=== PATIENT | female | born 1990 | race Caucasian/White ===

== ENCOUNTER 2022-07-30 02:17 | Emergency (ER) | payer BC, MEDICAID, SELFPAY ==
[2022-07-30 02:35] VITALS: BP 137/84; PULSE 84; RESP 18; TEMP 37.1; O2SAT 99; BMI 28.3
--- NOTE | 2022-07-30 02:54 | ED_ITS ---
HPI - General Adult General Date Seen: 07/30/22 Chief complaint: Ear/Nose/Throat Problem Stated complaint: sinus infection Time Seen by Provider: 07/30/22 02:22 History of Present Illness HPI narrative: Patient is a 32-year-old female who has been ill for the past five days with runny nose and head congestion. Two days ago she began developing some pain in her left ear and that has progressed to the point where she is unable to sleep due to the pain. There has been no drainage from the ear. No fevers or chills. She is using some cold medication but no pain medication. Related Data Previous Rx's Medication Instructions Recorded amoxicillin 875 mg tablet 875 mg PO BID #20 tabs 07/30/22 Allergies Allergy/AdvReac Type Severity Reaction Status Date / Time No Known Drug Allergies Allergy Verified 07/30/22 02:37 Review of Systems Narrative: Review of systems is outlined above otherwise noted to be negative. [facility] Medical History (Updated 07/30/22 @ 02:54 by Eligio Andersen MD) Anxiety Surgical History (Updated 07/30/22 @ 02:52 by Ronnie Krueger RN) No significant past surgical history Social History Smoking Status: Never smoker Second hand tobacco smoke exposure: No How often do you have a drink containing alcohol: never How often do you have six or more drinks on one occasion: Never AUDIT-C Alcohol total score: 0 Non-prescribed substance use: denies use Exam Narrative: Exam Narrative: Vitals noted. HEENT: Conjunctiva clear. Right tympanic membrane is pearly white. On the left there is redness and some purulent fluid. No drainage. Posterior pharynx is clear without erythema or exudate. Neck is supple without adenopathy, thyromegaly, carotid bruit. Lungs: Clear to auscultation in all rowan. No wheezes, rales, rhonchi. Heart: Regular rate and rhythm without murmur. Extremities: No cyanosis or edema. Good distal pulses. Skin: No abnormalities noted of the exposed skin. Neurologic: Awake, alert, fully oriented. Neurologic exam is nonfocal. Const: Vital Signs, click to edit/add: Vital Signs - 24 hr 07/30/22 02:35 07/30/22 03:14 Temperature 98.7 F 98.7 F Pulse Rate [Right Pulse Oximeter] 84 84 Respiratory Rate 18 18 Blood Pressure [Ri ght Upper Arm] 137/84 137/84 Pulse Oximetry 99 Oxygen Delivery Me thod Room Air Course Course Hospital Course: Patient seen and examined. No diagnostic testing is needed. Vital Signs Vital signs: Initial Vital Signs Temperature 98.7 F 07/30/22 02:35 Temperature Source Temporal Artery Scan 07/30/22 02:35 Pulse Rate 84 07/30/22 02:35 Respiratory Rate 18 07/30/22 02:35 Blood Pressure 137/84 07/30/22 02:35 Blood Pressure Mean 101 07/30/22 02:35 Blood Pressure Position Sitting 07/30/22 02:35 Pulse Oximetry 99 07/30/22 02:35 Oxygen Delivery Method 07/30/22 02:35 Vital Signs Temperature 98.7 F 07/30/22 02:35 Pulse Rate 84 07/30/22 02:35 Respiratory Rate 18 07/30/22 02:35 Blood Pressure 137/84 07/30/22 02:35 Pulse Oximetry 99 07/30/22 02:35 Oxygen Delivery Method 07/30/22 02:35 Temperature 98.7 F 07/30/22 03:14 Pulse Rate 84 07/30/22 03:14 Respiratory Rate 18 07/30/22 03:14 Blood Pressure 137/84 07/30/22 03:14 Pulse Oximetry 99 07/30/22 02:35 Oxygen Delivery Method 07/30/22 02:35 Discharge Plan Discharge Clinical Impression: Otitis media Patient Disposition: Home, Self-Care Condition: Stable Additional Instructions: Amoxicillin 875 mg twice a day for 10 days. Tylenol and Ibuprofen for pain. Continue cold meds. Follow up with your PCP if no better in 3-5 days. Prescriptions: New amoxicillin 875 mg tablet 875 mg PO BID Qty: 20 0RF Stand Alone Forms: [employer] Info Instructions
[2022-07-30 03:14] VITALS: BP 137/84; PULSE 84; RESP 18; TEMP 37.1
== END 2022-07-30 03:14 | disposition home or self-care (01) ==
PROVIDERS: Emergency Provider Family Medicine
DX: H66.92 Otitis media, unspecified, left ear (principal)
CPT/HCPCS: 99281; 99283

== ENCOUNTER 2022-10-28 21:48 | Emergency (ER) | payer BC, MEDICAID, SELFPAY ==
[2022-10-28 22:52] VITALS: BP 119/80; PULSE 77; RESP 20; TEMP 36.1; O2SAT 100
--- NOTE | 2022-10-28 23:38 | ED.ABDPAIN ---
HPI - Abdominal Pain General Chief Complaint: Abdominal Pain Stated Complaint: Middle upper abdominal pain Time Seen by Provider: 10/28/22 23:09 History of Present Illness HPI narrative: This 32-year-old female reports abdominal pain that began last night. She states that she did not sleep through the night because the pain in her upper epigastric region was very severe. She states that the pain is worse after taking food. She does not report any fevers. She states that the pain is rather constant. She does feel pain radiating through to her back. Related Data Previous Rx's Medication Instructions Recorded amoxicillin 875 mg tablet 875 mg PO BID #20 tabs 07/30/22 Allergies Allergy/AdvReac Type Severity Reaction Status Date / Time No Known Drug Allergies Allergy Verified 07/30/22 02:37 Review of Systems Status of ROS Reports: 10 or more systems reviewed and unremarkable except as noted in History and below Narrative Constitutional: No fevers, no weight gain or loss. Eyes: No discharge. No vision changes. HENT: No congestion, no sore throat, no ear pain. Cardiovascular: No chest pain, no palpitations. Respiratory: No shortness of breath, no wheezes, no cough. Gastrointestinal: Abdominal pain as described above. Genitourinary: No dysuria, no hematuria. Musculoskeletal: Normal range of motion. Skin: No rashes, no pruritis. Neurological: No dizziness, weakness, sensory change, speech change. Endo/Heme/Allergies: No bruising or bleeding. No polydipsia. Pysch: no suicidality, no anxiety, no insomnia. All other systems reviewed and are negative. PFSH [facility] Medical History (Updated 10/29/22 @ 00:10 by Calderon Briones MD) Anxiety ?F41.9 - Anxiety disorder, unspecified (ICD-10) Surgical History (Updated 07/30/22 @ 02:52 by Ronnie Krueger RN) No significant past surgical history Social History Smoking Status: Never smoker Second hand tobacco smoke exposure: No How often do you have a drink containing alcohol: never How often do you have six or more drinks on one occasion: Never AUDIT-C Alcohol total score: 0 Non-prescribed substance use: denies use Exam Narrative: Exam Narrative: Constitutional: Well-developed, well-nourished, no acute distress. HEENT: Normocephalic, atraumatic. Neck: Normal range of motion. Nontender. Supple. Heart: Regular. No murmurs. Normal rate. Intact distal pulses. Lungs: Clear to auscultation. No chest discomfort. No wheezes, rhonchi, or rales. Abdomen: Normal bowel sounds. Pain in the upper epigastric region and in the right upper quadrant. No rebound tenderness. Genitalia: Deferred. Back: No midline tenderness. Normal range of motion. Extremities: Normal range of motion. No injury. Skin: Intact. No rash. Warm. No erythema or pallor. Neurologic: No altered sensation. No weakness. Alert and oriented. Psychiatric: No suicidality. No anxiety or depression. No insomnia. Nursing notes and vitals signs are reviewed. Const: Vital Signs, click to edit/add: Vital Signs - 24 hr 10/28/22 22:52 Temperature 97 F L Pulse Rate [Left P ulse Oximeter] 77 Respiratory Rate 20 Blood Pressure [Ri ght Upper Arm] 119/80 Pulse Oximetry 100 Oxygen Delivery Me thod Room Air Course Vital Signs Vital signs: Initial Vital Signs Temperature 97 F L 10/28/22 22:52 Temperature Source Temporal Artery Scan 10/28/22 22:52 Pulse Rate 77 10/28/22 22:52 Pulse Rhythm Regular 10/28/22 22:52 Respiratory Rate 20 10/28/22 22:52 Blood Pressure 119/80 10/28/22 22:52 Blood Pressure Mean 93 10/28/22 22:52 Blood Pressure Position Sitting 10/28/22 22:52 Pulse Oximetry 100 10/28/22 22:52 Oxygen Delivery Method Room Air 10/28/22 22:52 Vital Signs Temperature 97 F L 10/28/22 22:52 Pulse Rate 77 10/28/22 22:52 Respiratory Rate 20 10/28/22 22:52 Blood Pressure 119/80 10/28/22 22:52 Pulse Oximetry 100 10/28/22 22:52 Oxygen Delivery Method Room Air 10/28/22 22:52 Temperature 97 F L 10/28/22 22:52 Pulse Rate 77 10/28/22 22:52 Respiratory Rate 20 10/28/22 22:52 Blood Pressure 119/80 10/28/22 22:52 Pulse Oximetry 100 10/28/22 22:52 Oxygen Delivery Method Room Air 10/28/22 22:52 MDM - Abdominal Pain MDM Narrative Medical decision making narrative: This patient comes in with upper epigastric abdominal pain and right upper quadrant abdominal pain since last night. She states that she did not sleep last night due to the intensity of the pain. She also reports that the pain is worse after taking food. Using bedside ultrasound I did get good views of her gallbladder and common bile duct. She does have stones in her gallbladder. There is no sign of gallbladder wall thickening and her common bile duct appears patent without increased size. An IV was established where the patient received IV fluids, Dilaudid, and Zofran. Lab studies are ordered and results are pending at the end of my shift. The overnight physician will look after these results. The patient is able to go home if no complication is found related to her gallbladder. Discharge Plan Discharge Clinical Impression: Cholelithiasis Prescriptions: No Action amoxicillin 875 mg tablet 875 mg PO BID Qty: 20 0RF Follow Up/Referrals: Provider,Not a Local [Primary Care Provider] - Procedures Ultrasound Biliary exam #1: Anatomical areas examined: gallbladder, long and short axis and common bile duct Indications: RUQ/epigastric pain Exam type: limited abdominal ultrasound; RUQ Exam findings: stones visualized Impression: cholelithiasis Description/Findings: Stones located in the gallbladder but no gallbladder wall thickening and no obvious stone identified in the common bile duct.
[2022-10-28] MEDS: ONDANSETRON 2 MG/ML inj 4 MG IVP (23:52)
[2022-10-28] MEDS: HYDROmorphone 0.5 mg/0.5 ml inj IVP (23:52)
[2022-10-29] MEDS: 0.9 % SODIUM CHLORIDE 1000 ml 1,000 ML IV (00:10)
[2022-10-29 00:13] LABS: Basophils Absolute Auto 0.01 K/uL (0.00-0.30); Basophils Percent Auto 0.1 % (0.0-3.0); Eosinophils Absolute Auto 0.06 K/uL (0.00-0.50); Eosinophils Percent Auto 0.7 % (0.0-7.0); Hematocrit 36.1 % (33.0-51.0); Hemoglobin* 11.6 gm/dL (12.0-16.0); Immature Granulocytes Abs Auto 0.06 K/uL (0.00-0.30); Immature Granulocytes Pct Auto 0.7 %; Lymphocytes Absolute Auto 1.72 K/uL (0.90-2.90); Lymphocytes Percent Auto 20.1 % (20-44); Mean Corpuscular HGB Conc 32 gm/dL (32-36); Mean Corpuscular Hemoglobin 26 pg (26-34); Mean Corpuscular Volume 80 fL (80-100); Monocytes Percent Auto 7.4 % (0.0-11.0); Neutrophils Absolute Auto 6.08 K/uL (1.7-7.0); Platelet Count* 286 K/uL (140-440); RDW Coefficient of Variation % 13.6 % (11.5-15.5); Red Blood Count 4.51 m/uL (4.00-5.20); White Blood Count* 8.56 K/uL (4.50-11.00)
[2022-10-29 00:18] LABS: Slide Review Reflex No
[2022-10-29 00:24] LABS: Chloride* 105 mmol/L (96-114)
[2022-10-29 00:25] LABS: Albumin* 4.3 g/dL (3.3-5.0)
[2022-10-29 00:26] LABS: Potassium* 3.7 mmol/L (3.6-5.1); Sodium* 137 mmol/L (135-149)
[2022-10-29 00:28] LABS: Alkaline Phosphatase* 79 U/L (40-150); Aspartate Amino Transferase* 95 U/L (12-35); Bilirubin Direct* 0.1 mg/dL (0.0-0.5); Bilirubin Total* 0.4 mg/dL (0.1-1.5); Blood Urea Nitrogen* 11 mg/dL (5-24); Carbon Dioxide* 24 mmol/L (20-32); Creatinine* 0.6 mg/dL (0.5-1.5); Estimated Glomerular Filt Rate 121 ml/min; Total Protein* 7.6 g/dL (6.0-8.3)
[2022-10-29 00:29] LABS: Alanine Aminotransferase* 135 U/L (4-35); Calcium* 9.1 mg/dL (8.4-10.6); Glucose* 94 mg/dL (60-115); HCG Qualitative Serum* Negative (Negative); Lipase* 45 U/L (23-300)
[2022-10-29 00:31] LABS: C Reactive Protein* 0.9 mg/dL (0.5-1.0)
[2022-10-29 01:00] VITALS: BP 122/88; PULSE 64; RESP 16; TEMP 37; O2SAT 97
== END 2022-10-29 01:14 | disposition home or self-care (01) ==
PROVIDERS: Emergency Provider Emergency Medicine Emergency Medical Services
DX: K80.20 Calculus of gallbladder without cholecystitis without obstruction (principal)
CPT/HCPCS: 36415; 76705; 80048; 80076; 83690; 84703; 85025; 86140; 96374; 96375; 99284; J1170; J2405; J7030

== ENCOUNTER 2023-01-01 07:55 | Day surgery (SDC) | payer BC, MEDICAID, SELFPAY ==
[2023-01-01] VITALS (31 sets, daily range): BP systolic 90–126; BP diastolic 56–74; PULSE 47–83; RESP 16–18; TEMP 36.1–36.6; O2SAT 92–100; BMI 37.0
--- NOTE | 2023-01-01 08:29 | ED.ABDPAIN ---
HPI - Abdominal Pain General Date Seen: 01/01/23 Chief Complaint: Abdominal Pain Stated Complaint: Gallbladder pain Time Seen by Provider: 01/01/23 08:12 Source: patient Mode of arrival: ambulatory Limitations: no limitations History of Present Illness HPI narrative: Patient is a 32-year-old female who presents here with right upper quadrant pain, this started last night, last evening. She took some Tylenol, and ibuprofen and was unable to get really relief with this. She also is nauseous but has not vomited. She had the attack intensified this morning. Approximately 5:00 a.m., she took an oxycodone from a previous prescription. She then felt a pop approximately an hour later in the right upper quadrant and this ?freaked her out ?and she presented here. She has known cholelithiasis have been trying to deal with this in nonsurgical fashion, has not followed up with her primary care physician in [place] yet. She has really changed her diet she does not notice a difference with the food she eats. Attack stent to be random but are increasing over the past 6 weeks. Denies any fevers chills or sweats, bowel movement was normal yesterday, no dysuria frequency, she is currently having her menses. And denies being . MD elicited complaint: abdominal pain Pertinent past history: other Location: RUQ and R flank Severity: severe Quality: cramping and stabbing Radiation: back Migration to: no migration Exacerbating factors: nothing Relieving factors: nothing Associated symptoms: nausea Treatments prior to arrival: NSAIDs and prescription analgesics Related Data Date of last menstrual period: 01/01/23 Patient : No Home Medications Medication Instructions Recorded Confirmed No Known Home Medications 01/01/23 01/01/23 Allergies Allergy/AdvReac Type Severity Reaction Status Date / Time No Known Drug Allergies Allergy Verified 07/30/22 02:37 Review of Systems Status of ROS Reports: 10 or more systems reviewed and unremarkable except as noted in History and below PFSH [facility] Medical History Anxiety ?F41.9 - Anxiety disorder, unspecified (ICD-10) Surgical History No significant past surgical history Social History Smoking Status: Never smoker Second hand tobacco smoke exposure: No How often do you have a drink containing alcohol: never How often do you have six or more drinks on one occasion: Never AUDIT-C Alcohol total score: 0 Non-prescribed substance use: denies use Exam Narrative: Exam Narrative: Patient is seen in room 3, she is in mild distress very nice lady. Alert and oriented x3, nontoxic, pupils are equal round reactive to light, there is no scleral icterus noted, her TMs bilaterally are normal her oropharynx is normal, her neck is supple no meningismus, there is no lymphadenopathy anterior posterior chains, no evidence of petechiae or rashes are noted throughout her examination. Her chest is good air entry bilaterally but does splinting complaint of pain on the right side when she breathes in deeply. No extra sounds such as wheezes and crackles are noted. Heart sounds no clicks murmurs or gallops, she is slightly tender to moderately tender in the right upper quadrant epigastric region. There is no tenderness throughout the rest of her abdomen bowel sounds are normal, no organic megaly is noted no peritoneal signs, there is no CVA tenderness or tenderness along her flank notable. There is no thoracic or lumbar tenderness. She moves all extremities independently well well perfused no edema, and neurologically intact in upper lower extremities with symmetrical power, movement both proximally and distally. Const: Vital Signs, click to edit/add: Vital Signs - 24 hr 01/01/23 08:06 01/01/23 10:42 01/01/23 10:45 Temperature 96.9 F L Pulse Rate 52 L 55 L Pulse Rate [Right Pulse Oximeter] 67 Respiratory Rate 18 Blood Pressure [Ri ght Upper Arm] 109/56 L Pulse Oximetry 99 100 100 Oxygen Delivery Me thod Room Air Course Course Hospital Course: I spoke to Dr. Mcleod from General surgery, I suspect that this poor lady has severe biliary colic or early cholecystitis. She would likely need an operation, most likely laparoscopic cholecystectomy. I just wanted our general surgeon to be able to plan her day. I will get the labs ultrasound, Patient's pain is improved with the Dilaudid, given the findings on her examination, and ultrasound I believe she has early cholecystitis I spoken to the surgeon, she will be going to the operating room for a laparoscopic cholecystectomy, discussed with the patient. At this time the surgeon did not want antibiotics but they would be given perioperatively Vital Signs Vital signs: Initial Vital Signs Temperature 96.9 F L 01/01/23 08:06 Temperature Source Temporal Artery Scan 01/01/23 08:06 Pulse Rate 67 01/01/23 08:06 Respiratory Rate 18 01/01/23 08:06 Blood Pressure 109/56 L 01/01/23 08:06 Blood Pressure Mean 73 01/01/23 08:06 Blood Pressure Position Sitting 01/01/23 08:06 Pulse Oximetry 99 01/01/23 08:06 Oxygen Delivery Method Room Air 01/01/23 08:06 Vital Signs Temperature 96.9 F L 01/01/23 08:06 Pulse Rate 67 01/01/23 08:06 Respiratory Rate 18 01/01/23 08:06 Blood Pressure 109/56 L 01/01/23 08:06 Pulse Oximetry 99 01/01/23 08:06 Oxygen Delivery Method Room Air 01/01/23 08:06 Temperature 96.9 F L 01/01/23 08:06 Pulse Rate 55 L 01/01/23 10:45 Respiratory Rate 18 01/01/23 08:06 Blood Pressure 109/56 L 01/01/23 08:06 Pulse Oximetry 100 01/01/23 10:45 Oxygen Delivery Method Room Air 01/01/23 08:06 MDM - Abdominal Pain MDM Narrative Medical decision making narrative: During the evaluation of this patient I considered multiple differential diagnosis including life-threatening differentials which are appendicitis, aortic aneurysm, mesenteric ischemia, bowel perforation, ectopic , volvulus and bowel obstruction, other differential diagnosis include but are not limited to inflammatory bowel disease, cholecystitis, pancreatitis, hepatitis, gastritis, GERD, diverticulitis, peptic ulcer disease, pyelonephritis/UTI, renal colic/stone, pelvic inflammatory disease, cervicitis, endometritis, intrauterine , dysfunctional uterine bleeding, ovarian cyst/torsion, spontaneous as well as other etiologies Medical Records Attestation: I reviewed the patient's medical records. Lab Data Attestation: I reviewed the patient's lab results. Labs: Lab Results 01/01/23 Range/Units 09:00 WBC 3.69 L (4.50-11.00) K/uL RBC 4.47 (4.00-5.20) m/uL Hgb 11.5 L (12.0-16.0) gm/dL Hct 36.1 (33.0-51.0) % MCV 81 (80-100) fL MCH 26 (26-34) pg MCHC 32 (32-36) gm/dL RDW Coeff of Doug 13.6 (11.5-15.5) % Plt Count 187 (140-440) K/uL Neut % (Auto) 67.0 (42.0-72.0) % Lymph % (Auto) 22.2 (20-44) % Rogers % (Auto) 8.9 (0.0-11.0) % Eos % (Auto) 0.8 (0.0-7.0) % Baso % (Auto) 0.8 (0.0-3.0) % Neut # (Auto) 2.50 (1.7-7.0) K/uL Lymph # (Auto) 0.80 L (0.90-2.90) K/uL Rogers # (Auto) 0.30 (0.00-0.90) K/UL Eos # (Auto) 0.00 (0.00-0.50) K/uL Baso # (Auto) 0.00 (0.00-0.30) K/uL Sodium 137 (135-149) mmol/L Potassium 3.4 L (3.6-5.1) mmol/L Chloride 105 (96-114) mmol/L Carbon Dioxide 26 (20-32) mmol/L BUN 8 (5-24) mg/dL Creatinine 0.6 (0.5-1.5) mg/dL Estimated Creat Clear 169.03 Estimated GFR 121 ml/min Glucose 114 (60-115) mg/dL Calcium 8.6 (8.4-10.6) mg/dL Total Bilirubin 0.8 (0.1-1.5) mg/dL Direct Bilirubin 0.5 (0.0-0.5) mg/dL AST 768 H (12-35) U/L ALT 400 H (4-35) U/L Alkaline Phosphatase 80 (40-150) U/L C-Reactive Protein 0.7 (0.5-1.0) mg/dL Total Protein 6.8 (6.0-8.3) g/dL Albumin 3.9 (3.3-5.0) g/dL Lipase 42 (23-300) U/L HCG, Qual Negative (Negative) Imaging Data Abdominal ultrasound: Radiologist's impression: Patient: SLY BORGES Facility:?[facility] Patient ID:?[id number] Site Patient ID:?[id number]. :?1990 Study:?US Abdomen RUQ-01/01/2023 9:22:35 AM Ordering Physician:?DR GAONA Final Report: INDICATION: Right upper quadrant abdomen pain. TECHNIQUE: Ultrasound abdomen limited gallbladder, common bile duct, and pancreas. COMPARISON: None. FINDINGS: Gallbladder: Small stones and sludge present. Gallbladder is moderately distended. Normal wall thickness. No pericholecystic fluid. Common bile duct: 4 mm. Right kidney: Normal in caliber and appearance. No hydronephrosis. IMPRESSION: Cholelithiasis with moderate gallbladder distention. No other signs of acute cholecystitis. Dictated by Alvaro Spangler MD @ 01/01/2023 10:15:13 AM (Electronic Signature) Discharge Plan Discharge Clinical Impression: Cholecystitis, Cholelithiasis, Biliary colic Patient Disposition: XFER to OR Condition: Improved Prescriptions: No Action No Known Home Medications Follow Up/Referrals: Provider,Not a Local [Primary Care Provider] -
--- NOTE | 2023-01-01 08:34 | US_ITS ---
Patient: SLY BORGES Facility:?[facility] Patient ID:?[id number] Site Patient ID:?[id number]. :?1990 Study:?US-Abdomen RUQ-01/01/2023 9:22:35 AM Ordering Physician:?DR GAONA Final Report: INDICATION: Right upper quadrant abdomen pain. TECHNIQUE: Ultrasound abdomen limited gallbladder, common bile duct, and pancreas. COMPARISON: None. FINDINGS: Gallbladder: Small stones and sludge present. Gallbladder is moderately distended. Normal wall thickness. No pericholecystic fluid. Common bile duct: 4 mm. Right kidney: Normal in caliber and appearance. No hydronephrosis. IMPRESSION: Cholelithiasis with moderate gallbladder distention. No other signs of acute cholecystitis. Dictated by Alvaro Spangler MD @ 01/01/2023 10:15:13 AM Signed by:?Alvaro Spangler MD @01/01/2023 10:15:13 AM (Electronic Signature)
[2023-01-01] MEDS: HYDROmorphone 0.5 mg/0.5 ml inj IVP ×2 (08:59→10:35)
[2023-01-01] MEDS: ONDANSETRON 2 MG/ML inj 4 MG IVP ×2 (09:00→12:44)
[2023-01-01] MEDS: 0.9 % SODIUM CHLORIDE 1000 ml 1,000 ML IV (09:00)
[2023-01-01 09:14] LABS: Basophils Percent Auto 0.8 % (0.0-3.0); Eosinophils Percent Auto 0.8 % (0.0-7.0); Hematocrit 36.1 % (33.0-51.0); Hemoglobin* 11.5 gm/dL (12.0-16.0); Immature Granulocytes Pct Auto 0.3 %; Lymphocytes Percent Auto 22.2 % (20-44); Mean Corpuscular HGB Conc 32 gm/dL (32-36); Mean Corpuscular Hemoglobin 26 pg (26-34); Mean Corpuscular Volume 81 fL (80-100); Monocytes Percent Auto 8.9 % (0.0-11.0); Platelet Count* 187 K/uL (140-440); RDW Coefficient of Variation % 13.6 % (11.5-15.5); Red Blood Count 4.47 m/uL (4.00-5.20); White Blood Count* 3.69 K/uL (4.50-11.00)
[2023-01-01 09:17] LABS: Slide Review Reflex No
[2023-01-01 09:26] LABS: Chloride* 105 mmol/L (96-114)
[2023-01-01 09:27] LABS: Albumin* 3.9 g/dL (3.3-5.0); Potassium* 3.4 mmol/L (3.6-5.1); Sodium* 137 mmol/L (135-149)
[2023-01-01 09:29] LABS: Creatinine* 0.6 mg/dL (0.5-1.5); Est. Creatinine Clearance* 169.03; Estimated Glomerular Filt Rate 121 ml/min
[2023-01-01 09:30] LABS: Alkaline Phosphatase* 80 U/L (40-150); Bilirubin Direct* 0.5 mg/dL (0.0-0.5); Bilirubin Total* 0.8 mg/dL (0.1-1.5); Blood Urea Nitrogen* 8 mg/dL (5-24); Carbon Dioxide* 26 mmol/L (20-32); Lipase* 42 U/L (23-300); Total Protein* 6.8 g/dL (6.0-8.3)
[2023-01-01 09:31] LABS: Alanine Aminotransferase* 400 U/L (4-35); Calcium* 8.6 mg/dL (8.4-10.6); Glucose* 114 mg/dL (60-115)
[2023-01-01 09:33] LABS: C Reactive Protein* 0.7 mg/dL (0.5-1.0)
[2023-01-01 09:38] LABS: Aspartate Amino Transferase* 768 U/L (12-35)
[2023-01-01 09:43] LABS: HCG Qualitative Serum* Negative (Negative)
--- NOTE | 2023-01-01 12:23 | P.GSHP_ITS ---
History of Present Illness History of Present Illness Date Seen: 01/01/23 Chief complaint: Gallbladder pain Narrative: Gris Young is a 32 year old female Who presents to the emergency department with several days of abdominal pain. She states that last Thursday or 6 days ago she developed severe upper abdominal pain around 10:00 p.m.. she was able to fall asleep and she woke up later and her pain was gone But over the past week she has had chest pain, lightheadedness and dizziness. Last evening again around 10:00 p.m. she developed the same severe pain. She took Tylenol and used a heating pad. This did not alleviate her pain. She was up all night and at 5:00 a.m. became more severe and began radiating to her back. At 6:00 a.m. she felt gassy, dizzy and had chills and so she came in to be seen. In October she had a similar episode again which came on at night. Workup revealed stones in her gallbladder without cholecystitis or common bile duct dilatation. At that time white blood cell count was normal. AST and ALT were very mildly elevated. Bilirubin and CRP were both normal. She then was seen statistical machine servicer and was eating a gallbladder diet. She was doing well until this recent episode. She states that she has also had some heartburn symptoms but this has been mild. [facility] Medical History (Updated 01/01/23 @ 13:38 by Linda Mcleod MD) Anxiety ?F41.9 - Anxiety disorder, unspecified (ICD-10) Surgical History (Updated 01/01/23 @ 13:35 by Linda Mcleod MD) H/O lymph node biopsy ?Z98.890 - Other specified postprocedural states (ICD-10) History of ?Z98.891 - History of uterine scar from previous surgery (ICD-10) Social History Smoking Status: Never smoker Second hand tobacco smoke exposure: No How often do you have a drink containing alcohol: never How often do you have six or more drinks on one occasion: Never AUDIT-C Alcohol total score: 0 Non-prescribed substance use: denies use Meds Home Medications and Allergies Home Medications Medication Instructions Recorded Confirmed Type No Known Home Medications 01/01/23 01/01/23 History Allergies Allergy/AdvReac Type Severity Reaction Status Date / Time No Known Drug Allergies Allergy Verified 07/30/22 02:37 Exam Narrative: Exam Narrative: General appearance: Alert, cooperative, and in no distress Eyes: PERRLA, eye lids clear, and sclera white HENT Head: Normocephalic Ears: External ears normal Pulmonary: Clear to auscultation bilaterally Cardiovascular Heart: Regular rate and rhythm Extremities: warm and well perfused Gastrointestinal Abdominal: No upper abdominal scars. Patient is tender in the right upper quadrant and epigastric region. Negative Ryan sign. Musculoskeletal: Extremities: Upper: Both upper extremities have normal joint range of motion and intact strength. Lower: Both lower extremities have normal joint range of motion and intact strength. Skin: Normal skin color, texture, and turgor. Neurologic: No focal deficits Psychiatric: Alert, oriented, cooperative, normal affect. Const: Vital Signs, click to edit/add: Vital Signs - 24 hr 01/01/23 08:06 01/01/23 10:42 01/01/23 10:45 Temperature 96.9 F L Pulse Rate 52 L 55 L Pulse Rate [Right Pulse Oximeter] 67 Respiratory Rate 18 Blood Pressure [Ri ght Upper Arm] 109/56 L Pulse Oximetry 99 100 100 Oxygen Delivery Me thod Room Air Results Results Labs: White blood cell count is 3.6 Hemoglobin is 11.5 Potassium is mildly low at 3.4. AST and ALT are markedly elevated at 768 and 400. LFTs are otherwise normal. CRP normal. Abdominal ultrasound report/results: report reviewed and image reviewed Additional studies: Ultrasound of the abdomen done today shows small stones and sludge in the gallbladder. Gallbladder is moderately distended. Normal wall thickness. No pericholecystic fluid. Common bile duct measures 4 mm. Assessment and Plan Assessment and plan (1) Biliary colic: Status: Acute (2) Transaminitis: Status: Acute Plan The patient is a 32-year-old female with biliary colic and possible cho lecystitis though the only indicators of this are persistent pain and transaminitis. I explained to the patient that her liver tests are higher than I would expect without an elevated white blood cell count or CRP or sonographic evidence of cholecystitis, however certainly cholecystitis could explain that. We did discuss that she does take some supplements though she states that they are all supposed to be for liver health. I explained that sometimes this can be the cause of elevated liver tests. If she has cholecystitis intraoperatively then that would likely explain LFTs. If she does not then we would potentially perform a cholangiogram though again she does not have an obstructive pattern more of an inflammatory pattern. We discussed cholecystectomy as well as risks and benefits of surgery which include bleeding, infection, bile leak, conversion to open or injury to other structures, specifically the common bile duct. We also discussed recovery. She is agreeable to proceed and we will plan on surgery today. She may be able to discharge later today depending on her recovery. She understands that if her symptoms do not resolve after removing her gallbladder then we would pursue additional workup such as possible EGD or referral to Gastroenterology
--- NOTE | 2023-01-01 13:27 | W.ANESCHARGE ---
Anesthesia Charges Start Date/Time Anesthesia Start Date: 01/01/23 Anesthesia Start Time: 13:32 Stop Date/Time Anesthesia Stop Date: 01/01/23 Anesthesia Stop Time: 15:27
--- NOTE | 2023-01-01 13:59 | W.ANESCHARGE ---
Anesthesia Charges Start Date/Time Anesthesia Start Date: 01/01/23 Anesthesia Start Time: 13:32 Stop Date/Time Anesthesia Stop Date: 01/01/23 Anesthesia Stop Time: 15:32
[2023-01-01] MEDS: BUPIVACAINE 0.5% 30 ML INJECTION ×2 (14:00→15:32)
--- NOTE | 2023-01-01 14:26 | CRLHL7_ITS ---
For Patients: As a result of the Century Cures Act, medical imaging exams and procedure reports are released immediately into your electronic medical record. You may view this report before your referring provider. If you have questions, please contact your health care provider. INDICATION : Laparoscopic cholecystectomy. TECHNIQUE : Intraoperative cholangiogram. Contrast injected via gallbladder neck and cystic duct. FINDINGS : Fluoroscopy time was 13.9 seconds. 2 images were obtained. IMPRESSION : Normal caliber intra and extrahepatic ducts. No filling defects. Contrast seen within the duodenum. Normal intraoperative cholangiogram. Dictated by Eligio Baum MD @ 01/02/2023 6:17:37 AM (Electronically Signed)
[2023-01-01] MEDS: IOPAMIDOL 50 ML VIAL INJECTION (14:40)
--- NOTE | 2023-01-01 15:46 | PM.GSPRC ---
Operative Note Date of procedure: 01/01/23 Pre-op diagnosis: 1. Acute cholecystitis 2. Possible choledocholithiasis Post-op diagnosis: 1. Acute cholecystitis with gallbladder hydrops Type of Procedure: 1. Laparoscopic cholecystectomy 2. Intraoperative cholangiogram Indications: The patient is a 32-year-old female who has presented to the emergency department with right upper quadrant and epigastric pain. This has been going on for about 6 days. She has had previous episodes and was found to have gallstones. Despite attempts at dietary changes to avoid further attacks, she had this most recent attack 6 days ago which really did not resolve. She was found to have markedly elevated liver enzymes as well as a distended gallbladder on ultrasound. After discussion of options she agreed to proceed with cholecystectomy. Given elevated liver enzymes I recommended possible cholangiogram depending on intraoperative findings. She agreed to proceed Procedure Description: After discussing the risks and benefits of the procedure, the patient signed informed consent.? The operative site was marked and the patient was brought to the operating room and placed on the operating table in supine position.? Care was taken to pad the patient's pressure points.?? The patient was then intubated by anesthesia.?? The operative site was then prepped and draped in the usual sterile fashion.? A time-out was then performed. Entrance to the abdomen was gained via a 5 mm Visiport in the left upper quadrant. The abdomen was insufflated and briefly surveyed for signs of injury. There was none. A 10 mm umbilical port was placed as well as 2 working ports along the right costal margin, all under direct vision. The patient was then placed in reverse Trendelenburg position with the right side up. The gallbladder was noted to be markedly distended. A needle was then advanced into the abdomen and the gallbladder was aspirated. Milky white fluid returned. This did not appear to be purulent, however it was sent for culture. The gallbladder fundus was then grasped and retracted cephalad. lThe infundibulum was grasped. A combination of hook cautery and blunt dissection was used to carefully dissect out the cystic duct and artery until they could clearly be seen entering the gallbladder without any intervening structures. The gallbladder was dissected off the cystic plate to achieve the critical view. Once this was achieved the the cystic artery was clipped with 2 clips proximally and 1 clip distally and transected with the scissors. The cystic duct was noted to have stones that were impacted within. I attempted to milk though stones back into the gallbladder using the Ivett dissect her, however I was unable to do so. I dissected the cystic duct further distally so that there were room for clips and I then placed a clip above the stone on the cystic duct. Because of the large cystic duct with impacted stones, the manipulation of the stones and the fact that the patient has elevated transaminases I elected to proceed with cholangiogram. I created a ductotomy where the stone was impacted. I then was able to push several small stones backwards out of the cystic duct and out of the ductotomy. These were then removed from the abdomen. Bile then flowed out of the cystic duct. The cholangiocatheter was then brought into the abdomen and placed into the cystic duct. A saline leak test was performed. The patient was then placed flat and fluoroscopy was brought into view. Contrast was then injected with brisk filling of the left and right hepatic ducts as well as the common bile duct and duodenum without any obvious filling defects. The cholangiocatheter was then removed and the patient was placed back into reverse Trendelenburg position. I then placed 2 clips just below the ductotomy and transected the cystic duct above these clips. The gallbladder was then taken off of the liver bed and removed from the abdomen using an Endo-Catch bag. The gallbladder bed was surveyed for hemostasis which appeared adequate. A small amount of bile which had spilled was suctioned from the abdomen. The umbilical port fascia was closed with 0 Vicryl. The remaining ports were then removed and the abdomen desufflated. The skin was closed with absorbable subcuticular suture. Glue was then applied. Instrument sponge and needle counts were correct at the end of the case. The patient was then woken and transferred to the PACU in stable condition. ? The patient tolerated the procedure well. Findings: Gallbladder hydrops with milky fluid (not overtly purulent), however sent for culture Cholangiogram without filling defects Anesthesia: GETA Surgeon: Linda Mcleod MD Estimated blood loss (mL): 5 Specimen: Gallbladder Additional Specimen Information: 1. Gallbladder 2. Bile for culture Condition: stable Disposition: PACU
[2023-01-01] MEDS: HYDROCODONE-ACETAMIN 5-325 MG 1 TAB PO (16:58)
== END 2023-01-01 17:34 | disposition home or self-care (01) ==
LOC: ED 12:50 → SS 13:31
PROVIDERS: Emergency Provider Family Medicine; Visit Provider Surgery
PROC: 0FT44ZZ Resection of Gallbladder, Percutaneous Endoscopic Approach (ICD-10-PCS; CPT 47563; principal; 2023-01-01 13:45)
DX: K80.12 Calculus of gallbladder with acute and chronic cholecystitis without obstruction (principal); K82.1 Hydrops of gallbladder
CPT/HCPCS: 47563; 00790; 36415; 74300; 76705; 80048; 80076; 81001; 83690; 84703; 85025; 86140; 87070; 87075; 87186; 87205; 88304; 99284; 99285; A9270; J0330; J1100; J1170; J1885; J2405; J2704; J3010; J3490; J7030; Q9967

== ENCOUNTER 2023-01-13 09:42 | Outpatient (CLI) | payer BC, MEDICAID, SELFPAY | END 2023-01-13 09:43 | disposition home or self-care (01) | PROVIDERS: Visit Provider Surgery | DX: Z01.818 Encounter for other preprocedural examination (principal); R10.9 Unspecified abdominal pain; R74.01 Elevation of levels of liver transaminase levels | CPT/HCPCS: 80076; 83690 ==

== ENCOUNTER 2023-10-07 08:38 | Outpatient (CLI) | payer BC, MEDICAID, SELFPAY ==
--- NOTE | 2023-10-07 08:45 | US_ITS ---
Patient: SLY BORGES Facility:?[facility] Patient ID:?[id number] Site Patient ID:?[id number]. Site :?1990 Study:?US-OB Pelvis DATING AND VIABILITY-10/07/2023 9:33:35 AM Ordering Physician:?KATERINE ALONSO Final Report: INDICATION: First trimester scan, establish dates. COMPARISON: None. TECHNIQUE: Real-time jurado-scale imaging of the pelvis was performed. FINDINGS: Sonographic imaging demonstrates a single living intrauterine gestation. The embryo demonstrates a regular cardiac rate measuring 173 beats per minute. The embryo`s crown-rump length measurement of 2.8 cm corresponds to a gestational age of 9 weeks 4 days with a sonographic due date of 05/07/2024. There is a normal-appearing yolk sac. There are no gross abnormalities noted within the embryo at this early state of development. The gestational sac has a normal appearance. There is a 2.1 x 0.8 x 2.9 cm perigestational hemorrhage. The amount of fluid within the sac appears appropriate for gestational age. The cervix is closed. The myometrium appears normal. The ovaries are of normal size. Corpus luteal cyst right ovary. There are no suspicious fluid collections noted in the cul-de-sac. IMPRESSION: Single living intrauterine with sonographic gestational age 9 weeks 4 days and sonographic due date of 05/07/2024. Anterior subchorionic hemorrhage measuring 2.1 x 0.8 x 2.9 cm. Dictated by Eligio Baum MD @ 10/07/2023 9:43:22 AM Signed by:?Eligio Baum MD @10/07/2023 9:43:22 AM (Electronic Signature)
== END 2023-10-07 08:39 | disposition home or self-care (01) ==
LOC: US 08:39
PROVIDERS: Visit Provider Advanced Practice Midwife
DX: Z34.91 Encounter for supervision of normal pregnancy, unspecified, first trimester (principal); Z3A.09 9 weeks gestation of pregnancy
CPT/HCPCS: 76801; 86592; 86703; 86704; 86706; 86762; 86787; 86803; 86850; 86900; 86901; 87086; 87340

== ENCOUNTER 2023-12-17 08:47 | Outpatient (CLI) | payer BC, SELFPAY ==
--- NOTE | 2023-12-17 08:45 | CRLHL7_ITS ---
For Patients: As a result of the Century Cures Act, medical imaging exams and procedure reports are released immediately into your electronic medical record. You may view this report before your referring provider. If you have questions, please contact your health care provider. INDICATION: Evaluate anatomy. COMPARISON: 10/07/2023 TECHNIQUE: Real time jurado scale imaging of the fetus was performed as well as color Doppler analysis of the umbilical vessels. FINDINGS: Sonographic imaging demonstrates a single living intrauterine gestation. Fetus demonstrates a regular cardiac rate of 149 beats per minute. Fetus has a breech position. The placenta lies posteriorly without evidence of placenta previa. Placental edge is 6.0 cm from the internal cervical os. Amniotic fluid volume appears normal. Single deepest vertical pocket: 5.9 cm. The cervix is closed and measures 5.0 cm in length. The composite ultrasound gestational age is calculated at 20 weeks 1 day with an estimated sonographic due date of 05/04/2024. The estimated weight is 340 grams which lies at the 59th %. The following biometric measurements were obtained: Biparietal diameter: 4.4 cm/19 weeks 2 days 19th% Head circumference: 16.7 cm/19 weeks 3 days 17th% Abdominal circumference: 15.5 cm/20 weeks 5 days 66th% Femur length: 3.2 cm/20 weeks 0 days 43rd% The HC/AC ratio measures: 1.08 range (1.07-1.25) On anatomic survey, there is a normal appearance of the cerebral ventricles, cavum septi pellucidi, cisterna magna and cerebellum. The nose, lips, and facial profile appear normal. The cervical, thoracic and lumbar spine are well visualized and appear normal. There is a normal four-chamber heart view and the left and right ventricular outflow tracts appear normal. The diaphragm and stomach appear normal. The kidneys and bladder also appear normal. There is a normal three-vessel cord and cord insertion site. The four extremities appear normal. IMPRESSION: Normal OB ultrasound exam with concordance of clinical and sonographic dating. No intrinsic abnormalities noted on anatomic survey. Dictated by Eligio Baum MD @ 12/17/2023 10:54:30 AM (Electronically Signed)
--- OUTSIDE RECORDS SUMMARY | 2023-12-17 08:49 | XMS_ITS | Referral Summary ---
Author Organization [place] Address [address] [facility] [place] [address] Care Team Providers Care Restaurant Greeter Name Role Phone Claudia Parham MD Primary Care Provider +1- [phone] Allergies No known active allergies Medications Medication Sig Dispensed Refills Start Date End Date Status ferrous sulfate (IRON) 325 (65 Fe) MG tablet Take by mouth daily (with breakfast) Active Vit-Fe Fumarate-FA ( MULTIVITAMIN PLUS IRON) 27-0.8 MG TABS per tablet Take 1 tablet by mouth daily Active oxyCODONE IR (ROXICODONE) 5 MG tabletIndications:S /P section Take 1 tablet (5 mg) by mouth every 4 hours as needed for other (pain control or improvement in physical function. Hold dose for analgesic side effects.) 20 tablet 12/13/2017 Active ibuprofen (ADVIL/MOTRIN) 600 MG tabletIndications:S /P section Take 1 tablet (600 mg) by mouth every 6 hours as needed for moderate pain 30 tablet 12/13/2017 Active senna-docusate (SENOKOT-S;PERICOLA CE) 8.6-50 MG per tabletIndications:S /P section Take 1 tablet by mouth daily as needed for constipation 15 tablet 12/13/2017 Active erythromycin (ROMYCIN) 5 MG/GM ophthalmic ointment Place 0.5 inches Into the left eye 4 times daily 1 g 04/15/2019 Active Active Problems Problem Noted Date Diagnosed Date Dyspareunia, female 02/18/2018 High-tone pelvic floor dysfunction 02/18/2018 S/P section 12/10/2017 Social History Tobacco Use Types Packs/Day Years Used Date Smoking Tobacco: Never Smokeless Tobacco: Never Alcohol Use Standard Drinks/Week Comments No 0 (1 standard drink = 0.6 oz pur e alcohol) Sex and Gender Information Value Date Recorded Sex Assigned at Not on file Gender Identity Not on file Sexual Orientation Not on file Last Filed Vital Signs Vital Sign Reading Time Taken Comments Blood Pressure 131/48 04/16/2019 10:48 AM CDT Pulse 75 04/16/2019 10:48 AM CDT Temperature 37.2 ??C (99 ??F) 04/16/2019 10:48 AM CDT Respiratory Rate 16 04/16/2019 10:48 AM CDT Oxygen Saturation 97% 04/16/2019 10:48 AM CDT Inhaled Oxygen Concentration - - Weight 79.4 kg (175 lb) 04/16/2019 10:48 AM CDT Height 147.3 cm (4' 10) 04/16/2019 10:48 AM CDT Body Mass Index 36.58 04/16/2019 10:48 AM CDT Plan of Treatment Not on file Care Teams Restaurant Greeter Relationship Specialty Start Date End Date Claudia Parham MD [address] [address] PCP - General affirmative action officer 12/04/17
--- OUTSIDE RECORDS SUMMARY | 2023-12-17 08:49 | XMS_ITS | Clinical Summary ---
Author Organization [place] Address [address] [facility] [place] [address] Care Team Providers Care Superior Court Judge Name Role Phone Claudia Praham MD Primary Care Provider +1- [phone] Allergies No known active allergies Medications Medication [...] of Treatment Not on file Care Teams Superior Court Judge Relationship Specialty Start Date End Date Claudia Parham MD [address] [address] PCP - General journalism internship 12/04/17
== END 2023-12-17 08:48 | disposition home or self-care (01) ==
PROVIDERS: Visit Provider Advanced Practice Midwife
DX: Z34.92 Encounter for supervision of normal pregnancy, unspecified, second trimester (principal); Z3A.20 20 weeks gestation of pregnancy
CPT/HCPCS: 76805

== ENCOUNTER 2024-02-10 10:52 | Outpatient (CLI) | payer BC, SELFPAY ==
--- OUTSIDE RECORDS SUMMARY | 2024-02-12 09:27 | XMS_ITS | Referral Summary ---
Author Organization [place] Address [address] [facility] [place] [address] Care Team Providers Care Stiff Leg Operator Name Role Phone Claudia Parham MD Primary Care Provider +1- [phone] Allergies No known active allergies Medications Medication [...] drink = 0.6 oz pur e alcohol) Adolescent Education Answer Date Record ed Getting School Help Needed Not on file 01/08 Sex and Gender Information Value Date Recorded [...] of Treatment Not on file Care Teams Stiff Leg Operator Relationship Specialty Start Date End Date Claudia Parham MD [address] [address] PCP - General natural gas plant technician 12/04/17
--- OUTSIDE RECORDS SUMMARY | 2024-02-12 09:27 | XMS_ITS | Clinical Summary ---
Author Organization [place] Address [address] [facility] [place] [address] Care Team Providers Care Parimutuel Ticket Cashier Name Role Phone Claudia Parham MD Primary Care Provider +1- [phone] Allergies No known active allergies Medications Medication [...] of Treatment Not on file Care Teams Parimutuel Ticket Cashier Relationship Specialty Start Date End Date Claudia Parham MD [address] [address] PCP - General wildlife photographer 12/04/17
== END 2024-02-10 10:53 | disposition home or self-care (01) ==
LOC: NFLDREF 02-12 09:25
PROVIDERS: Visit Provider Advanced Practice Midwife
DX: Z34.92 Encounter for supervision of normal pregnancy, unspecified, second trimester (principal); Z3A.27 27 weeks gestation of pregnancy
CPT/HCPCS: 86592

== ENCOUNTER 2024-02-24 15:16 | Outpatient (CLI) | payer BC, SELFPAY ==
--- OUTSIDE RECORDS SUMMARY | 2024-02-24 15:18 | XMS_ITS | Clinical Summary ---
Author Organization [place] Address [address] [facility] [place] [address] Care Team Providers Care Shear Grinder Operator Helper Name Role Phone Claudia Parham MD Primary Care Provider +1- [phone] Allergies No known active allergies Medications Medication [...] of Treatment Not on file Care Teams Shear Grinder Operator Helper Relationship Specialty Start Date End Date Claudia Parham MD [address] [address] PCP - General senior receptionist 12/04/17
--- OUTSIDE RECORDS SUMMARY | 2024-02-24 15:18 | XMS_ITS | Referral Summary ---
Author Organization [place] Address [address] [facility] [place] [address] Care Team Providers Care Electrical And Instrumentation Mechanic Name Role Phone Claudia Parham MD Primary Care Provider +1- [phone] Allergies No known active allergies Medications Medication [...] of Treatment Not on file Care Teams Electrical And Instrumentation Mechanic Relationship Specialty Start Date End Date Claudia Parham MD [address] [address] PCP - General case aide 12/04/17
== END 2024-02-24 15:17 | disposition home or self-care (01) ==
LOC: NFLDREF 15:17
PROVIDERS: Visit Provider Advanced Practice Midwife
DX: Z34.93 Encounter for supervision of normal pregnancy, unspecified, third trimester (principal); Z3A.29 29 weeks gestation of pregnancy
CPT/HCPCS: 87086

== ENCOUNTER 2024-03-23 13:39 | Outpatient (CLI) | payer BC, SELFPAY ==
--- OUTSIDE RECORDS SUMMARY | 2024-03-23 13:41 | XMS_ITS | Referral Summary ---
Author Organization [place] Address [address] [facility] [place] [address] Care Team Providers Care Detacker Name Role Phone Claudia Parham MD Primary Care Provider +1- [phone] Allergies No known active allergies Medications Medication [...] of Treatment Not on file Care Teams Detacker Relationship Specialty Start Date End Date Claudia Parham MD [address] [address] PCP - General cheese cutter 12/04/17
--- OUTSIDE RECORDS SUMMARY | 2024-03-23 13:41 | XMS_ITS | Clinical Summary ---
Author Organization [place] Address [address] [facility] [place] [address] Care Team Providers Care Manager Medical Affairs Name Role Phone Claudia Parham MD Primary Care Provider +1- [phone] Allergies No known active allergies Medications Medication [...] of Treatment Not on file Care Teams Manager Medical Affairs Relationship Specialty Start Date End Date Cluadia Parham MD [address] [address] PCP - General card processing clerk 12/04/17
--- NOTE | 2024-03-24 12:18 | PC.NURSE ---
Diagnosis: iron deficiency anemia in
== END 2024-03-23 13:40 | disposition home or self-care (01) ==
LOC: NFLDREF 13:39
PROVIDERS: Visit Provider Obstetrics & Gynecology
DX: Z34.83 Encounter for supervision of other normal pregnancy, third trimester (principal)
CPT/HCPCS: 82728

== ENCOUNTER 2024-04-06 09:32 | Outpatient (CLI) | payer BC, SELFPAY ==
--- OUTSIDE RECORDS SUMMARY | 2024-04-06 09:36 | XMS_ITS | Clinical Summary ---
Author Organization [place] Address [address] [facility] [place] [address] Care Team Providers Care Manager Eligibility Name Role Phone Claudia Parham MD Primary Care Provider +1- [phone] Allergies No known active allergies Medications Medication [...] Treatment Not on file Care Teams Manager Eligibility Relationship Specialty Start Date End Date Claudia Parham MD [address] [address] PCP - General apprentice cook 12/04/17
--- OUTSIDE RECORDS SUMMARY | 2024-04-06 09:36 | XMS_ITS | Referral Summary ---
Author Organization [place] Address [address] [facility] [place] [address] Care Team Providers Care Telephone Diaphragm Assembler Name Role Phone Claudia Parham MD Primary Care Provider +1- [phone] Allergies No known active allergies Medications Medication [...] of Treatment Not on file Care Teams Telephone Diaphragm Assembler Relationship Specialty Start Date End Date Claudia Parham MD [address] [address] PCP - General animal control supervisor 12/04/17
[2024-04-07 09:38] LABS: Strep B DNA Probe Negative (Negative)
[2024-04-07 09:57] LABS: Strep B Susceptibility Needed? No
== END 2024-04-06 09:33 | disposition home or self-care (01) ==
LOC: NFLDREF 09:33
PROVIDERS: Visit Provider Obstetrics & Gynecology
DX: Z34.83 Encounter for supervision of other normal pregnancy, third trimester (principal)
CPT/HCPCS: 87081; 87653

== ENCOUNTER 2024-04-13 13:00 | Outpatient (RCR) | payer BC, SELFPAY ==
--- NOTE | 2024-03-31 10:46 | URNOTE ---
Jorge Luiseme ([id number]) has been approved, 510mg x 2 doses, 03/25/2024-04/29/2024, Auth #[id number].
[2024-04-06 11:21] VITALS: BP 109/72; PULSE 86; RESP 16; TEMP 36.1; O2SAT 96
[2024-04-06] MEDS: 0.9 % SODIUM CHLORIDE 250 ml IV (12:00)
[2024-04-06] MEDS: SODIUM CHLORIDE 0.9 % (FLUSH) 10 ML SYRINGE IVF (12:00)
[2024-04-06] MEDS: ferumoxytoL 510 MG in 0.9 % SODIUM CHLORIDE 250 ml 250 ML 860 MG IVPB (12:13)
[2024-04-06 13:15] VITALS: BP 112/69; PULSE 77; RESP 16; TEMP 36.8; O2SAT 98
[2024-04-13 13:15] VITALS: BP 100/66; PULSE 83; RESP 16; TEMP 36.5; O2SAT 97
[2024-04-13] MEDS: SODIUM CHLORIDE 0.9 % (FLUSH) 10 ML SYRINGE IVF (13:29)
[2024-04-13] MEDS: ferumoxytoL 510 MG in 0.9 % SODIUM CHLORIDE 250 ml 250 ML 1068 MG IVPB (13:29)
[2024-04-13] MEDS: 0.9 % SODIUM CHLORIDE 250 ml IV (13:29)
[2024-04-13 13:54] VITALS: BP 100/64; PULSE 93; RESP 16; O2SAT 97
[2024-04-13 14:27] VITALS: BP 97/62; PULSE 87; RESP 16; TEMP 36.6; O2SAT 97
== END 2024-10-03 23:59 | disposition home or self-care (01) ==
LOC: CCIC 13:00
PROVIDERS: Visit Provider Clinical Nurse Specialist
DX: O99.019 Anemia complicating pregnancy, unspecified trimester (principal); D50.9 Iron deficiency anemia, unspecified
CPT/HCPCS: 96365; 96374; J7050; Q0138

== ENCOUNTER 2024-04-14 13:41 | Outpatient (CLI) | payer BC, SELFPAY ==
--- OUTSIDE RECORDS SUMMARY | 2024-04-14 13:44 | XMS_ITS | Referral Summary ---
Author Organization [place] Address [address] [facility] [place] [address] Care Team Providers Care Business Analytics Analyst Name Role Phone Claudia Parham MD Primary Care Provider +1- [phone] Allergies No known active allergies Medications Medication [...] of Treatment Not on file Care Teams Business Analytics Analyst Relationship Specialty Start Date End Date Claudia Parham MD [address] [address] PCP - General drafter patent 12/04/17
--- OUTSIDE RECORDS SUMMARY | 2024-04-14 13:44 | XMS_ITS | Clinical Summary ---
Author Organization [place] Address [address] [facility] [place] [address] Care Team Providers Care Second Baller Name Role Phone Claudia Parham MD Primary Care Provider +1- [phone] Allergies No known active allergies Medications Medication [...] of Treatment Not on file Care Teams Second Baller Relationship Specialty Start Date End Date Claudia Parham MD [address] [address] PCP - General toddler teacher 12/04/17
== END 2024-04-14 13:42 | disposition home or self-care (01) ==
LOC: NFLDREF 13:42
PROVIDERS: Visit Provider Obstetrics & Gynecology
DX: R39.15 Urgency of urination (principal)
CPT/HCPCS: 87086

== ENCOUNTER 2024-04-24 18:56 | Emergency (ER) | payer BC, SELFPAY ==
[2024-04-24 19:09] VITALS: BP 121/76; PULSE 86; RESP 18; TEMP 36.6; O2SAT 98
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
--- OUTSIDE RECORDS SUMMARY | 2024-04-24 19:40 | XMS_ITS | Clinical Summary ---
Author Organization [place] Address [address] [place] [address] Care Team Providers Care Screw Machine Setter Name Role Phone Claudia Parham MD Primary Care Provider +1- [phone] Allergies No known active allergies Medications Medication [...] of Treatment Not on file Care Teams Screw Machine Setter Relationship Specialty Start Date End Date Claudia Parham MD [address] [address] PCP - General cub reporter 12/04/17
--- OUTSIDE RECORDS SUMMARY | 2024-04-24 19:40 | XMS_ITS | Referral Summary ---
Author Organization [place] Address [address] [place] [address] Care Team Providers Care Crib Pad Maker Name Role Phone Claudia Parham MD Primary Care Provider +1- [phone] Allergies No known active allergies Medications Medication [...] of Treatment Not on file Care Teams Crib Pad Maker Relationship Specialty Start Date End Date Claudia Parham MD [address] [address] PCP - General electric welder helper 12/04/17
== END 2024-04-24 20:12 | disposition home or self-care (01) ==
PROVIDERS: Emergency Provider Emergency Medicine
DX: S05.02XA Injury of conjunctiva and corneal abrasion without foreign body, left eye, initial encounter (principal); W55.03XA Scratched by cat, initial encounter
CPT/HCPCS: 99282; 99283; A9270

== ENCOUNTER 2024-04-28 05:46 | Inpatient (IN) | payer BC, SELFPAY ==
[2024-04-28] VITALS (32 sets, daily range): BP systolic 90–125; BP diastolic 55–73; PULSE 64–100; RESP 15–18; TEMP 36.6–37; O2SAT 96–98; BMI 39.6
--- OUTSIDE RECORDS SUMMARY | 2024-04-28 05:50 | XMS_ITS | Clinical Summary ---
Author Organization [place] Address [address] [place] [address] Care Team Providers Care Netsuite Developer Name Role Phone Claudia Parham MD Primary Care Provider +1- [phone] Allergies No known active allergies Medications Medication [...] of Treatment Not on file Care Teams Netsuite Developer Relationship Specialty Start Date End Date Claudia Parham MD [address] [address] PCP - General rotary drier operator 12/04/17
--- OUTSIDE RECORDS SUMMARY | 2024-04-28 05:50 | XMS_ITS | Referral Summary ---
Author Organization [place] Address [address] [place] [address] Care Team Providers Care Web Content Producer Name Role Phone Claudia Parham MD Primary Care Provider +1- [phone] Allergies No known active allergies Medications Medication [...] of Treatment Not on file Care Teams Web Content Producer Relationship Specialty Start Date End Date Claudia Parham MD [address] [address] PCP - General savings teller 12/04/17
[2024-04-28] MEDS: LACTATED RINGERS 1000 ML 1,000 ML IV ×2 (06:38→08:10)
[2024-04-28 06:52] LABS: Basophils Absolute Auto 0.02 K/uL (0.00-0.30); Basophils Percent Auto 0.3 % (0.0-3.0); Eosinophils Absolute Auto 0.07 K/uL (0.00-0.50); Hematocrit 33.6 % (33.0-51.0); Immature Granulocytes Abs Auto 0.04 K/uL (0.00-0.30); Immature Granulocytes Pct Auto 0.5 %; Lymphocytes Percent Auto 17.9 % (20-44); Mean Corpuscular HGB Conc 33 gm/dL (32-36); Mean Corpuscular Hemoglobin 28 pg (26-34); Mean Corpuscular Volume 84 fL (80-100); Monocytes Percent Auto 9.4 % (0.0-11.0); Neutrophils Percent Auto 70.9 % (42.0-72.0); Platelet Count* 178 K/uL (140-440); RDW Coefficient of Variation % 15.7 % (11.5-15.5); White Blood Count* 7.33 K/uL (4.50-11.00)
[2024-04-28 07:00] LABS: Slide Review Reflex No
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
--- NOTE | 2024-04-28 07:29 | PM.OBPRCCS ---
Procedure Time Seen by Provider: 07:29 Date of procedure: 04/28/24 Will [facility] bill your pro fee for this procedure?: Yes Procedure Description: DELIVERY BY SECTION Date of Service: 04/28/2024 Delivery time: 8 Summary: Admitted for scheduled delivery at 39.0 weeks, repeat lower uterine transverse section, Pfannenstiel, Closed with sutures, QBL 643 cc, no complications, Findings: Fascia is moderately scarred to anterior rectus muscles. Minimal filmy adhesions. There was a 2 x 2 cm window in the left lower uterine segment at the site of previous hysterotomy. Normal appearing bilateral ovaries and fallopian tubes. Discussed intraoperative finds and implications with patient. Advised patient she will likely need an earlier delivery with subsequent pregnancies. 9/9, weight pending. Primary Indication: 1. Previous delivery x3 Procedures: Repeat Lower uterine transverse section Specimens Removed: Placenta Surgeon: Alejandrina Shen MD Director Digital Sales Surgeon: Dr. Erlinda Cornejo Anesthesia: Spinal and TAP Report: Prophylactic antibiotic, 2 g of Ancef was given before patient was taken to OR. After arrival to the operating room patient was placed in the supine position with left lateral tilt after administration of spinal anesthesia. Laparotomy A pfannenstiel incision was made through the anterior abdominal wall with #10 scalpel approximately 2 cm above the pubic symphysis. The incision was extended sharply with the #10 scalpel through the subcutaneous tissue to the level of fascia. The fascia was entered sharply with a #10 scalpel (Pfannenstiel) in the midline and extended in semi-elliptical fashion with Delacruz scissor. The underlying muscles were dissected off the overlying fascia by grasping the superior aspect of fascia with two stevenson clamps and blunt dissection was used along the midline. The fascia was further from rectus muscle with Delacruz scissor and/or cautery. In similar fashion, the lower aspect of fascia was also grasped with two Stevenson clamps and both blunt and sharp dissection was used to separate fascia from rectus muscle. The rectus muscles were in the midline bluntly with digits. The peritoneum was then entered sharply. The peritoneal incision was then extended superiorly and inferiorly under direct visualization with care being taken to avoid bladder and bowel. Minimal filmy adhesions noted. The peritoneal incision was enlarged bluntly by lateral traction from the surgeon's and itinerant teacher assistant's hand. Rohan retractor was inserted into the abdomen. Delivery A bladder flap was developed by grasping with Haitian forcep and enter with Metzenbaun scissor. Then sharp and blunt dissection with Metzenbaum scissor and fingers were performed. A low transverse hysterotomy was made then with #10 scalpel and extended laterally and cephalad with fingers in a low transverse fashion with Manu Allen technique with care being taken to avoid injury to the fetus. The amniotic cavity (membrane) was then entered with spontaneous rupture of membrane, and the amniotic fluid was noted to be clear, fetus was delivered cephalic. With delivery of the baby, no extension was noted. Placenta was delivered spontaneously with steady traction on cord and manual separation of placenta from uterine wall. Closure Uterine cavity was cleaned after placental delivery with lap sponge x 2. The hysterotomy was closed in two layers with stitches using 0 vicryl with continuous locking stitches and 0 monocryl in a continuous non locking manner. Hemostasis was achieved as needed with electrocautery. The ovaries/tubes/uterine surface were evaluated. They were found to be normal. Rohan retractor removed and hemostasis was confirmed again. Fascia was closed with running stitches using 0 PDS. Subcutaneous layer was irrigated. Hemostasis was checked for and found to be adequate. The subcutaneous layer was closed with running Vicryl sutures. The skin was closed with monocryl subcuticular sutures . The incision was cleaned and covered with a compression bandage and the procedure considered terminate at this time. Intraoperative Complications: None QBL: 643 cc. Uterotonics: 40 u of pitocin. Disposition: The patient tolerated the procedure well. She was recovered in Obstetric PACU for close monitoring in stable condition, with a contracted uterus and normal transvaginal bleeding. The was sent to mother?s bedside/PACU. The placenta was not sent to pathology. Debrief with OR team performed and specimen reviewed at the conclusion of the procedure.
[2024-04-28] MEDS: CEFAZOLIN 2 GM INJ IVP (07:45)
[2024-04-28] MEDS: KETOROLAC 30 MG/ML inj IVP ×3 (08:40→20:42)
--- NOTE | 2024-04-28 09:01 | W.PM.NB ---
Nerve Block Nerve Block Time Seen by Provider: 08:45 Date Seen: 04/28/24 Type of block requested by surgeon for post-operative analgesia: TAP Side: bilateral Time out performed: Yes Verification of patient name: Yes Verification of date of : Yes Site marking: site marked Name of person performing procedure: Jose G Vazquez Assistants, if any: VITALIY Agee Continuous monitoring Was continuous monitoring of O2 sat, B/P, concrete paving machine operator, recorded every 15 minutes?: Yes Procedure Checklist: sterile prep, needles and gloves Ultrasound guided. Images saved: Yes Medications given in 5ml increments after negative aspiration: Marcaine %: 0.25 mL: 30 Needle gauge: 21 and Exparel mL: 10 Needle gauge: 21 Patient tolerated procedure well: Yes Additional comments: Injected in 5mL increments after negative aspiration Block Charges Block Charge (with Pro Fee): TAP Bilateral Use of Ultrasound Machine for Block: Yes- US Guidance/pain block
--- NOTE | 2024-04-28 09:02 | W.ANESCHARGE ---
Anesthesia Charges Start Date/Time Anesthesia Start Date: 04/28/24 Anesthesia Start Time: 07:26 Stop Date/Time Anesthesia Stop Date: 04/28/24 Anesthesia Stop Time: 08:57
--- NOTE | 2024-04-28 09:19 | W.ANESCHARGE ---
Anesthesia Charges Start Date/Time Anesthesia Start Date: 04/28/24 Anesthesia Start Time: 07:26 Stop Date/Time Anesthesia Stop Date: 04/28/24 Anesthesia Stop Time: 08:57
--- NOTE | 2024-04-28 13:23 | PC.NURSE ---
Patient turned and repositioned. Pericare completed. Small clot noted in pad otherwise normal bleeding. Catheter intact and patent. Patient complains of itching but declined Benadryl as she does not want to be sleepy at this time.
--- NOTE | 2024-04-28 18:48 | PC.NURSE ---
Nursing Care Hours: [id number] Pt this shift calm and cooperative. Engaged with baby. No c/o pain. VSS. Aggarwal removed when pt proved to be steady on feet. some dizziness reported. Pt instructed to call for SB assist to bathroom until cleared to be independent. Tolerating regular meals.
[2024-04-28] MEDS: ENOXAPARIN 40 MG/0.4 ML INJ SUBCUT (20:42)
[2024-04-29] VITALS (13 sets, daily range): BP systolic 95–105; BP diastolic 56–66; PULSE 65–80; RESP 16; TEMP 36.6–37.1; O2SAT 96–97
[2024-04-29] MEDS: ACETAMINOPHEN 500 MG TABLET 1000 MG PO ×4 (00:17→19:52)
[2024-04-29] MEDS: KETOROLAC 30 MG/ML inj IVP ×3 (03:27→15:21)
[2024-04-29 06:39] LABS: Hemoglobin* 9.9 gm/dL (12.0-16.0)
[2024-04-29] MEDS: OXYCODONE 5 MG TABLET PO ×2 (07:20→19:52)
--- NOTE | 2024-04-29 08:29 | PM.OBPNVD1 ---
OB - PN:Subj Subjective Date Seen: 04/29/24 Narrative: The patient feels well.? The pain is well controlled with current medications.?Oxycodone is working well for her. She has no new complaints.? Urinary output is adequate and she is voiding without difficulty.? Has a good appetite, is tolerating a general diet, is passing flatus, and has not had a bowel movement.? Has scant amount of rubra lochia.? She is ambulating well. She is and reports it is going well, but baby does seem to have some GI upset. Encouraged to talk to peds about this. ? OB - PN: Obj Exam Physical Exam: Vital signs: Temp Pulse Resp BP Pulse Ox O2 Del Method 98.8 F 65 16 105/62 96 Room Air 04/29/24 03:31 04/29/24 03:31 04/29/24 06:38 04/29/24 03:31 04/29/24 03:31 04/29/24 03:31 Narrative: GENERAL APPEARANCE:? normal affect, alert, no distress MOOD:? appropriate CHEST:? clear to auscultation HEART:? regular rate and rhythm ABDOMEN:? soft, non-tender the uterine fundus is At Umbilicus, Midline and is appropriate for the stage of recovery. EXTREMITIES:? normal and mild edema Incision: Surgical dressing intact with no surrounding erythema, abnormal induration or discharge OB - PN: Obj Data Labs Labs: Laboratory Results - last 24 hr 04/29/24 06:31 Hgb 9.9 L OB - PN: A/P Delivery Assessment and Plan (1) History of delivery, currently : Problem details: 3 previous C/S Status: Acute (2) Anemia affecting in third trimester: Status: Acute (3) Migraine: Status: Acute (4) care and examination of lactating mother: Status: Acute (5) Status post repeat low transverse section: Status: Acute (6) Uterine abnormality in : Problem details: Uterine window 2x2 cm noted during 4th Status: Acute Plan Continue Routine PP care. , may see if needed? Hgb 9.9. ?Continue iron supplementation for a couple weeks for recovery.? Labs WNL or stable with trending? Abdominal binder for support given Encouraged stool softeners and if laxative needed, to consider Senna. Surgical dressing to be removed later today or tomorrow. ? ? ? Plan day: 1 Plan: routine care
[2024-04-29] MEDS: DOCUSATE SODIUM 100 MG CAPSULE PO (09:28)
[2024-04-29] MEDS: LANOLIN CREAM 1 APPLIC TOPICAL (09:29)
[2024-04-29] MEDS: ENOXAPARIN 40 MG/0.4 ML INJ SUBCUT (19:55)
[2024-04-29] MEDS: IBUPROFEN 600 MG TABLET PO (23:10)
[2024-04-30] MEDS: ACETAMINOPHEN 500 MG TABLET 1000 MG PO ×2 (01:50→08:43)
[2024-04-30] MEDS: IBUPROFEN 600 MG TABLET PO (05:02)
[2024-04-30 08:34] VITALS: BP 110/71; PULSE 68; RESP 18; TEMP 36.7; O2SAT 98
[2024-04-30] MEDS: DOCUSATE SODIUM 100 MG CAPSULE PO (08:44)
--- NOTE | 2024-04-30 09:20 | PM.OBDSVD1 ---
DS: Providers Provider Date Seen: 04/30/24 Date of admission: 04/28/24 05:46 Primary care physician: Not a Local Provider Admitting Clinician: Alejandrina Shen MD Attending Physician on discharge: Linn Jasso MD Date of Discharge: 04/30/24 DS: Diagnosis Discharge Diagnosis (1) Uterine abnormality in : Status: Acute Problem details: Uterine window 2x2 cm noted during 4th (2) Status post repeat low transverse section: Status: Acute (3) care and examination of lactating mother: Status: Acute (4) Anemia associated with acute blood loss: Status: Acute Exam Narrative: Exam Narrative: General: Pleasant, no acute distress Heart: Regular rate and rhythm, no murmur or gallop Lungs: Clear to auscultation bilaterally Abdomen: Soft, nontender, fundus well below umbilicus, incision clean, dry, and intact Lower extremities: No edema or erythema Const: Vital Signs, click to edit/add: Vital Signs - 24 hr 04/29/24 16:47 04/29/24 23:12 04/30/24 08:34 Temperature 98.2 F 98.1 F 98.0 F Pulse Rate [Pulse Oximeter] 75 70 68 Respiratory Rate 16 16 18 Blood Pressure [Ri ght Arm] 104/66 101/66 110/71 Pulse Oximetry 96 97 98 Oxygen Delivery Me thod Room Air Room Air Room Air OB - DS: Summary Hospital Course Hospital Course: Gris is a 34-year-old G4 now P4 woman who is status post repeat at 39 weeks gestation on 04/28/2024. This was her 4th . Intraoperative findings were notable for a 2 x 2 cm window in the left lower uterine segment at the site of previous hysterotomy. Surgery was otherwise uncomplicated with a QBL of 643. She was delivered of a female . Her postoperative course has been smooth. Her hemoglobin on postoperative day 1 was 9.9 and she was continued on supplemental iron. She is breast feeding. the patient has done well. Today, on day 2, she has no complaints. She is tolerating a regular diet and has had a bowel movement. She denies any heavy bleeding. She is ambulating and urinating without difficulty. She is breast-feeding without difficulty. Peripartum Data Procedures: Procedures Operation Date: 04/28/24 07:15 Actual Procedure Side Surgeon p Repeat Section Not Applicable Alejandrina Shen MD [place] Gender: Female Time Spent with Patient Time attestation: Total time spent providing and/or coordinating discharge services: Discharge Plan Discharge Disposition: Home, Self-Care Date of Admission: 04/28/24 05:46 Attending Provider on Discharge: Linn Jasso Primary Care Provider: Provider,Not a Local Condition: Stable Anticipated Discharge Date/Time: 04/30/24 09:33 Discharge Medications: New acetaminophen 500 mg Tablet 1,000 mg PO Q6H PRN (Reason: Pain) Qty: 0 0RF docusate sodium 100 mg Capsule 100 mg PO DAILY Qty: 60 0RF ibuprofen 600 mg Tablet 600 mg PO Q6H PRN (Reason: Pain) Qty: 60 0RF Lanolin (HPA) 100 % Cream 1 applic topical Q1H PRNQty: 0 0RF oxycodone 5 mg Tablet 5 - 10 mg PO Q4H PRN (Reason: Pain) Qty: 20 0RF Continued Saccharomyces boulardii [Daily Probiotic (S. boulardii)] 250 mg capsule 250 mg PO BID Hold Instructions: patient ran out a week ago Discharge Orders: Discharge Order (Routine); Ordered 04/30/24 Ordered By: Linn Jasso Patient Education: OB /Breast Feeding Discharge Diet: Regular Follow Up Appointments: Provider,Not a Local [Primary Care Provider] - Linn Jasso MD [Staff Physician] - Forms: [facility] Info Instructions
== END 2024-04-30 12:30 | disposition home or self-care (01) | DRG 540 ==
PROVIDERS: Admitting Provider Obstetrics & Gynecology; Visit Provider Obstetrics & Gynecology
PROC: 10D00Z1 Extraction of Products of Conception, Low, Open Approach (ICD-10-PCS; CPT 59514; principal; 2024-04-28 07:15)
DX: O34.211 Maternal care for low transverse scar from previous cesarean delivery (principal); O99.02 Anemia complicating childbirth; D64.9 Anemia, unspecified; O34.593 Maternal care for other abnormalities of gravid uterus, third trimester; G89.18 Other acute postprocedural pain; D62 Acute posthemorrhagic anemia; Z58.89 Other problems related to physical environment; Z59.19 Other inadequate housing; Z77.120 Contact with and (suspected) exposure to mold (toxic); G43.909 Migraine, unspecified, not intractable, without status migrainosus; Z62.819 Personal history of unspecified abuse in childhood; Z3A.39 39 weeks gestation of pregnancy; Z37.0 Single live birth
CPT/HCPCS: 01961; 36415; 64488; 76942; 85018; 85025; 86850; 86900; 86901; A9270; C9290; J0665; J0690; J1100; J1650; J1885; J2274; J2371; J2405; J2590; J7120

== ENCOUNTER 2024-10-03 08:45 | Outpatient (RCR) | payer BC, SELFPAY | END 2025-01-31 23:59 | disposition home or self-care (01) | PROVIDERS: PCP Advanced Practice Midwife; Visit Provider Advanced Practice Midwife | DX: M62.89 Other specified disorders of muscle (principal); L90.5 Scar conditions and fibrosis of skin; R10.2 Pelvic and perineal pain; N94.2 Vaginismus; M54.50 Low back pain, unspecified; R15.2 Fecal urgency; R15.9 Full incontinence of feces; Z51.89 Encounter for other specified aftercare | CPT/HCPCS: 97110; 97112; 97140; 97161; 97535 ==

== ENCOUNTER 2025-03-31 09:12 | Outpatient (CLI) | payer BC, SELFPAY ==
[2025-03-31 13:33] LABS: Chlamydia DNA Amplified* NOT DETECTED (No Detected); GC DNA Amplified* NOT DETECTED (No Detected)
[2025-03-31 14:58] LABS: Bacterial Vaginosis* Negative (Negative); Candida glab/krus NOT DETECTED (No Detected)
[2025-04-04 13:53] LABS: HSV 1 Subtype by PCR Not Detected; HSV 2 Subtype by PCR Not Detected; Herpes Simplex Subtype Source Tissue
== END 2025-03-31 09:13 | disposition home or self-care (01) ==
PROVIDERS: Visit Provider Registered Nurse
DX: N89.8 Other specified noninflammatory disorders of vagina (principal); N94.9 Unspecified condition associated with female genital organs and menstrual cycle
CPT/HCPCS: 81513; 87481; 87491; 87529; 87591; 87661